=== PATIENT | male | born 1955 | race Caucasian/White ===

== ENCOUNTER 2016-12-09 16:43 | Emergency (ER) | payer BC, OTHER ==
[~2016-12-09] VITALS: Ht 175.3 cm; Wt 81.7 kg
--- NOTE | ~2016-12-09 | EKG ---
[address] [address] ELECTROCARDIOGRAM REPORT Name: ANUPAMHANDY ROCKWELL [id number] Admission: 12/09/16 Attend Phys: Discharge: 12/09/16 Date of : 51 Report #: [id number] THIS REPORT FOR: //name// [facility] ED Test Date: 2016-12-09 Test Time: 16:47:24 Pat Name: HANDY BO Department: Room: Gender: [facility] Service Coordinator[facility] 1955 Requested By: Tess Shea Order Number: [id number] MD: Samson Alonso Measurements Intervals [place] Rate: 92 P: 68 MS: 182 QRS: 27 QRSD: 109 T: 29 QT: 358 QTc: 443 Interpretive Statements Sinus rhythm No significant abnormality No previous ECG available for comparison Electronically Signed On 12-10-2016 8:39:29 CDT by Samson Alonso [email or web address] <ELECTRONICALLY SIGNED> By: Samson Alonso MD, [facility] 12/10/16 0839 [id number] 1647 Samson Alonso MD, FACC /EPI
[2016-12-09] MEDS ORDERED: COZAAR 50 MG TA50 M2 PO (16:45)
[2016-12-09] MEDS ORDERED: MOBIC15 MG PO (16:45)
[2016-12-09 18:12] LABS: ABSOLUTE NEUTROPHILS 5.5 thou/uL (1.4-8.2); BASOPHILS 0.7 % (0.0-2.0); HEMATOCRIT 42.9 % (42.0-52.0); HEMOGLOBIN 15.1 gm/dL (14.0-18.0); MCH 33.3 pg (26.0-34.0); MCHC 35.1 g/dL (28.0-37.0); MCV 94.7 fL (80.0-100.0); MONOCYTES 10.3 % (1.0-8.0); PLATELET COUNT 188 thou/uL (150-400); RBC 4.53 mil/uL (4.50-6.00); RDW 13.1 % (10.5-14.5); WBC 8.3 thou/uL (4.0-11.0)
[2016-12-09 18:16] LABS: MANUAL DIFF NO
[2016-12-09 18:17] LABS: ANION GAP 11 mmol/L (7-16); BUN 14 mg/dL (7-18); CALCIUM 8.5 mg/dL (8.5-10.1); CHLORIDE 103 mmol/L (98-107); CO2 24 mmol/L (21-32); CREATININE 0.7 mg/dL (0.7-1.3); GLUCOSE 99 mg/dL (74-106); POTASSIUM 3.7 mmol/L (3.5-5.1); SODIUM 138 mmol/L (136-145)
[2016-12-09 18:25] LABS: TROPONIN-I < 0.04 ng/mL (<0.04-0.07)
[2016-12-09 20:00] VITALS: BP 161/87
== END 2016-12-09 20:32 | disposition home or self-care (01) ==
LOC: ER 16:43
PROVIDERS: Emergency Medicine
DX: R07.9 Chest pain, unspecified (principal); E78.00 Pure hypercholesterolemia, unspecified

== ENCOUNTER → 2018-02-13 | Outpatient (CLI) | payer OTHER ==
[~2018-02-13] MED LIST: COZAAR 50 MG TA50 M2 PO; MOBIC15 MG PO
== END ==
LOC: RAD 14:54
DX: M47.812 Spondylosis without myelopathy or radiculopathy, cervical region (principal)

== ENCOUNTER → 2019-11-04 | Outpatient (CLI) | payer OTHER | LOC: SJCVCIMAG 13:23 | DX: I10 Essential (primary) hypertension (principal); R00.0 Tachycardia, unspecified; I25.10 Atherosclerotic heart disease of native coronary artery without angina pectoris ==

== ENCOUNTER → 2020-01-14 | Outpatient (CLI) | payer OTHER | LOC: CAT 01-13 15:22 | DX: I65.23 Occlusion and stenosis of bilateral carotid arteries (principal); R55 Syncope and collapse; R00.2 Palpitations; I10 Essential (primary) hypertension ==

== ENCOUNTER → 2020-08-28 | Outpatient (CLI) | payer OTHER | LOC: LAB 14:48 | PROVIDERS: ATTEND Nurse Practitioner | DX: Z20.828 Contact with and (suspected) exposure to other viral communicable diseases (principal) ==

== ENCOUNTER → 2020-12-25 | Outpatient (CLI) | payer OTHER | LOC: RAD 12:32 | PROVIDERS: ATTEND Nurse Practitioner | DX: M51.37 Other intervertebral disc degeneration, lumbosacral region (principal); M48.061 Spinal stenosis, lumbar region without neurogenic claudication ==

== ENCOUNTER → 2021-01-05 | Outpatient (CLI) | payer OTHER | LOC: MRI 08:29 | PROVIDERS: ATTEND Nurse Practitioner | DX: M51.17 Intervertebral disc disorders with radiculopathy, lumbosacral region (principal); M43.16 Spondylolisthesis, lumbar region; M47.26 Other spondylosis with radiculopathy, lumbar region; M48.07 Spinal stenosis, lumbosacral region; M25.78 Osteophyte, vertebrae; Z88.8 Allergy status to other drugs, medicaments and biological substances ==

== ENCOUNTER → 2021-04-13 | Outpatient (CLI) | payer OTHER | LOC: SJCVC 09:49 | PROVIDERS: ATTEND Internal Medicine Cardiovascular Disease | DX: I10 Essential (primary) hypertension (principal); E78.5 Hyperlipidemia, unspecified; R42 Dizziness and giddiness; F32.9 Major depressive disorder, single episode, unspecified; F90.0 Attention-deficit hyperactivity disorder, predominantly inattentive type; Z72.89 Other problems related to lifestyle; Z82.49 Family history of ischemic heart disease and other diseases of the circulatory system; Z79.899 Other long term (current) drug therapy ==